=== PATIENT | male | born 1950 | race Caucasian/White ===

== ENCOUNTER 2025-10-03 09:20 | Outpatient (CLI) | payer MEDICARE, BC ==
[2025-10-03 10:26] LABS: Estimated GFR - POC 63.0
== END 2025-10-03 09:21 | disposition home or self-care (01) ==
LOC: CSHMRI 09:20
PROVIDERS: ATTEND Internal Medicine
DX: K62.5 Hemorrhage of anus and rectum (principal); C61 Malignant neoplasm of prostate; Z86.0100 Personal history of colon polyps, unspecified; D18.03 Hemangioma of intra-abdominal structures; K29.80 Duodenitis without bleeding; K76.89 Other specified diseases of liver
CPT/HCPCS: 36415; 74183; 82565